=== PATIENT | female | born 1960 | race Caucasian/White ===

== ENCOUNTER 2018-05-03 18:46 | Emergency (ER) | payer BC ==
--- NOTE | 2018-05-03 19:17 | PDOC ---
Rapid Medical Evaluation Medical Evaluation: I have performed a brief in-person evaluation of this patient. The patient presents with a chief complaint of: 57 y/o with no sig pmh tripped over uneven pavement around 30 minutes ago, falling face forward. +LOC around 1.5 minutes. Denies taking any blood thinners. Pertinent physical exam findings: Abrasions to forehead and nose; no active bleeding, no lacerations; also with slight pain on flexion R thumb; no snuffbox TTP, FROM of R wrist; neck supple with FROM, no C spine TTP I have ordered the following: CT head/face, R hand/wrist x-ray, Tylenol The patient will proceed to the ED for further evaluation. 05/03/18 19:12
[2018-05-03] MEDS ORDERED: ACETAMINOPHEN 325 MG TABLET (FP) PO ONE (19:18)
[2018-05-03 19:21] VITALS: BP 142/70; PULSE 91; TEMP 97.4; BMI 31.9
[2018-05-03] MEDS ORDERED: ACETAMINOPHEN 325 MG TABLET (FP) ONE (20:01)
--- NOTE | 2018-05-03 22:30 | PDOC ---
Attending Attestation - HPI HPI: 05/03/18 23:00 The patient is a 57 year old female, with a significant past medical history of a right eye congenital cataract, who presents to the emergency department for evaluation status post mechanical fall just prior to presentation. The patient reports that it was dark and rainy outside as she was trying to get into her car. She slipped on the curb and down onto her right hand/wrist and hit the left side of her face on the ground. Her family, who are at the bedside, did report that she lost consciousness. They subsequently brought her to the emergency department for evaluation. Currently in the emergency department, the patient reports a mild headache in addition to right hand/wrist pain but denies any blurry vision, vision changes, nausea or vomiting. Allergies: None reported. Past Surgical History: None reported. Social History: Non-smoker. Denies alcohol or drug use. Documentation prepared by Aniyah Navarro, acting as electromedical service engineer for Lyly Modi MD. <Aniyah Finn - Last Filed: 05/03/18 23:00> - Resident Resident Name: Fred Eaton - ED Attending Attestation I have performed the following: I have examined & evaluated the patient, The case was reviewed & discussed with the resident, I agree w/resident's findings & plan, Exceptions are as noted - Physicial Exam PE: GENERAL: Awake, alert, and fully oriented, in no acute distress HEAD: +Abrasions and soft tissue swelling to L forehead and L cheek. No bony tenderness. EYES: R pupil +anisocoria (chronic per patient, prior surgery). L pupil round and reactive to light with EOMI, sclera anicteric, conjunctiva clear ENT: Auricles normal inspection, hearing grossly normal, nares patent, oropharynx clear without exudates. Moist mucosa NECK: Normal ROM, supple, no lymphadenopathy, JVD, or masses LUNGS: Breath sounds equal, clear to auscultation bilaterally. No wheezes, and no crackles HEART: Regular rate and rhythm, normal S1 and S2, no murmurs, rubs or gallops ABDOMEN: Soft, nontender, normoactive bowel sounds. No guarding, no rebound. No masses EXTREMITIES: Normal range of motion, no edema. No clubbing or cyanosis. No cords, erythema, or tenderness NEUROLOGICAL: Cranial nerves II through XII grossly intact. Normal speech, normal gait. Motor and sensation intact. SKIN: Warm, Dry, normal turgor. - Medical Decision Making CTH with questionable increased ICP, however, her clinical exam is not indicative of that. She is neurologically intact. D/w NSx, DC home. <Lyly Modi - Last Filed: 05/03/18 23:52>
--- NOTE | 2018-05-03 22:43 | PDOC ---
History of Present Illness - General Chief Complaint: Pain Stated Complaint: FALL Time Seen by Provider: 05/03/18 21:49 History Source: Patient, Family Exam Limitations: No Limitations - History of Present Illness Initial Comments: 05/03/18 22:46 Pt. states that while leaving the bank she slipped on the sidewalk and fell on her hands and face. Pt. denies any prodromal symptoms prior to the fall. Pt. was ableto partially brace the fall with her right hand but the majority of the impact was to the left side of her face. Per daughter and , the patient lost consciousness twice around the same time as she was being sit up started to fade out of consciousness and then again immediately after. The total time was about 2 minutes. EMS was called immediately and Pt. was brought to the ED. Pt. denies any nausea, vomiting, light headedness, dizziness, changes in vision , palpitations, numbness/tingling or lethargy at this time. Pt. endorses headache and was give Tylenol 650mg x 2 to good effect. Pt. endorses nose bleed that has resolved. Pt. endorses right wrist pain. 05/03/18 22:53 Timing/Duration: 4-6 hours Severity: moderate Associated Symptoms: reports: headaches Past History - Past Medical History Allergies/Adverse Reactions: Allergies Allergy/AdvReac Type Severity Reaction Status Date / Time No Known Allergies Allergy Verified 05/03/18 19:18 COPD: No Other medical history: Eczema - Surgical History Cholecystectomy: Yes - Suicide/Smoking/Psychosocial Hx Smoking History: Current every day smoker Number of Cigarettes Smoked Daily: 10 Information on smoking cessation initiated: No Hx Alcohol Use: No Drug/Substance Use Hx: No Review of Systems - Review of Systems HEENTM: Yes: Cataracts, Nose Bleeding. No: Blurred Vision, Double Vision Respiratory: No: Shortness of Breath, Wheezing, Productive cough Cardiac (ROS): No: Lightheadedness, Palpitations : Yes: Flank Pain. No: Burning, Dysuria Musculoskeletal: No: Joint Pain, Muscle Weakness Integumentary: Yes: Bruising, Erythema Neurological: Yes: Headache, Pre-Existing Deficit (congenital right eye cataract ). No: Numbness, Paresthesia, Tingling, Weakness, Ataxia, Dizziness *Physical Exam - Vital Signs Last Vital Signs Temp Pulse Resp BP Pulse Ox 97.4 F L 91 H 18 142/70 98 05/03/18 19:18 05/03/18 19:18 05/03/18 19:18 05/03/18 19:18 05/03/18 19:18 - Physical Exam HEENT: positive: EOMI, RADHA (congenital right eye cataract ), Normal Voice, Pharynx Normal, Sinus Tenderness (area of impact ), Orbits (tenderness around the eye) Neck: positive: Normal Thyroid, Supple Extremity: positive: Normal Capillary Refill, Normal Range of Motion, Erythema ( on right hand ) Neurologic: positive: german teacher II-XII NML intact, Fully Oriented, Alert, Normal Mood/ Affect, Normal Response, Motor Strength 5/5 Moderate Sedation - Procedure Monitoring Vital Signs: Procedure Monitoring Vital Signs Temperature 97.4 F L 05/03/18 19:18 Pulse Rate 91 H 05/03/18 19:18 Respiratory Rate 18 05/03/18 19:18 Blood Pressure 142/70 05/03/18 19:18 O2 Sat by Pulse Oximetry (%) 98 05/03/18 19:18 ED Treatment Course - Medications Given in the ED: ED Medications Discontinued Medications Generic Name Dose Route Start Last Admin Trade Name Freq PRN Reason Stop Dose Admin Acetaminophen 650 mg 05/03/18 19:18 05/03/18 20:04 Tylenol - PO 05/03/18 19:19 650 mg ONCE ONE Administration *DC/Admit/Observation/Transfer Diagnosis at time of Disposition: Fall Qualifiers: Encounter type: initial encounter Qualified Code(s): W19.XXXA - Unspecified fall, initial encounter - Discharge Dispostion Disposition: HOME Condition at time of disposition: Stable - Referrals Referrals: Bony Chester MD, [facility] [Staff Physician] - 05/16/18 - Patient Instructions Printed Discharge Instructions: DI for Dizziness-Nonvertigo, DI for Stroke- Intracerebral Hemorrhage Additional Instructions: You came in after a mechanical fall. You had x-rays of your hand and wrist which did not show any fractures. You had a Head CT which showed no immediate problems. We did see that the folds of your brain were smaller than usual, therefore we would like for you to follow up with a neurosurgeon, Dr. Bony Chester, on May 16, 2018. Please return to the ED if you are experiencing headaches tt are worsening or not getting better, nausea or vomiting, numbness/tingling in your hands, dizziness lightheadedness, worsening pain in your hand, changes in your vision or any other concerning symptoms. - Post Discharge Activity
== END 2018-05-03 23:42 | disposition home or self-care (01) ==
LOC: JER 18:46
DX: S09.93XA Unspecified injury of face, initial encounter (principal); W01.0XXA Fall on same level from slipping, tripping and stumbling without subsequent striking against object, initial encounter; Y93.89 Activity, other specified; Y92.480 Sidewalk as the place of occurrence of the external cause; Y99.8 Other external cause status
CPT/HCPCS: 70450-TC; 70486-TC; 73110-TC-RT-FY; 73130-TC-RT-FY; 99283-25

== ENCOUNTER 2021-12-24 18:10 | Emergency (ER) | payer OTHER ==
[2021-12-24 18:35] VITALS: BP 178/79; PULSE 91; RESP 16; TEMP 98.1; BMI 35.7
[2021-12-24] MEDS ORDERED: ACETAMINOPHEN 325 MG TABLET (FP) PO ONE (20:29)
[2021-12-24] MEDS ORDERED: KETOROLAC TROMETHAMINE 30 MG/1 ML VIAL IM ONE (20:29)
[2021-12-24 20:48] LABS: HEMATOCRIT 39.7 % (32.4-45.2); HEMOGLOBIN 13.2 GM/dL (10.7-15.3); MCH 30.8 pg (25.7-33.7); MCHC 33.3 g/dl (32.0-36.0); MEAN CELL VOLUME 92.6 fl (80-96); MEAN PLT VOLUME 7.8 fl (7.5-11.1); PLATELET COUNT 265 10^3/uL (134-434); RBC 4.29 M/mm3 (3.60-5.2); RDW 13.6 % (11.6-15.6); WHITE BLOOD COUNT 10.1 K/mm3 (4.0-10.0)
[2021-12-24 21:05] LABS: CALCIUM 8.8 mg/dL (8.5-10.1)
[2021-12-24 21:06] LABS: ALBUMIN 3.6 g/dl (3.4-5.0); BLOOD UREA NITROGEN 11.4 mg/dL (7-18)
[2021-12-24 21:09] LABS: CREATININE 0.9 mg/dL (0.55-1.3)
[2021-12-24 21:10] LABS: BILIRUBIN,TOTAL 0.2 mg/dL (0.2-1); TOT PROT 7.7 g/dl (6.4-8.2)
[2021-12-24] MEDS ORDERED: ACETAMINOPHEN 325 MG TABLET (FP) ONE (21:15)
[2021-12-24] MEDS ORDERED: KETOROLAC TROMETHAMINE 30 MG/1 ML VIAL ONE (21:15)
[2021-12-24 22:01] LABS: ANISOCYTOSIS 1+; MACROCYTOSIS 0
[2021-12-24 22:05] LABS: PLATELET ESTIMATE ADEQUATE
== END 2021-12-24 22:26 | disposition home or self-care (01) ==
LOC: JER 18:10
PROC: 3E0233Z Introduction of Anti-inflammatory into Muscle, Percutaneous Approach (ICD-10-PCS; principal; 2021-12-24)
DX: L03.116 Cellulitis of left lower limb (principal)
CPT/HCPCS: 36415; 76882-TC-RT-FY; 80053; 85025; 93971-TC; 99285-25

== ENCOUNTER 2024-02-09 11:48 | Emergency (ER) | payer OTHER ==
[2024-02-09 11:52] VITALS: BP 168/78; PULSE 115; RESP 18; TEMP 98.2; BMI 34.9
[2024-02-09] MEDS ORDERED: METHOCARBAMOL 500 MG TABLET ONE ×2 (12:29→13:23)
[2024-02-09] MEDS ORDERED: KETOROLAC TROMETHAMINE 15 MG/ML VIAL ONE (12:29)
[2024-02-09] MEDS ORDERED: LIDOCAINE 4% PATCH TP ONE (12:29)
[2024-02-09 12:52] LABS: EPI CELLS 9 /uL (0-25.1); HYALINE CASTS 6 /uL (0-3.1); PH,URINE 5.5 (5.0-8.0); URINE APPEARANCE CLEAR; URINE BACTERIA 112 /uL (0-1359); URINE BILIRUBIN NEGATIVE (NEGATIVE); URINE COLOR YELLOW; URINE GLUCOSE (UA) NEGATIVE (NEGATIVE); URINE KETONE TRACE (NEGATIVE); URINE LEUK ESTERASE 3+ (NEGATIVE); URINE NITRITE NEGATIVE (NEGATIVE); URINE PROTEIN TRACE (NEGATIVE); URINE RBC 25 /uL (0-23.9); URINE WBC 878 /uL (0-25.8)
[2024-02-09] MEDS: KETOROLAC TROMETHAMINE 30 MG/1 ML VIAL IM ONE (13:05)
[2024-02-09] MEDS: LIDOCAINE 4% PATCH TP ONE (13:06)
[2024-02-09] MEDS: METHOCARBAMOL 500 MG TABLET PO ONE ×2 (13:08→13:25)
[2024-02-09 14:47] LABS: BASO % 0.7 % (0-2.0); EOS % 3.2 % (0-4.5); HEMATOCRIT 38.7 % (32.4-45.2); HEMOGLOBIN 12.5 GM/dL (10.7-15.3); LYMPH % 27.7 % (8-40); MCH 30.2 pg (25.7-33.7); MCHC 32.4 g/dl (32.0-36.0); MEAN CELL VOLUME 93.4 fl (80-96); MEAN PLT VOLUME 7.8 fl (7.5-11.1); MONO % 9.2 % (3.8-10.2); NEUT % 59.2 % (42.8-82.8); PLATELET COUNT 299 10^3/uL (134-434); RBC 4.15 M/mm3 (3.60-5.2); RDW 14.3 % (11.6-15.6); WHITE BLOOD COUNT 8.9 K/mm3 (4.0-10.0)
[2024-02-09] MEDS ORDERED: diazePAM 2 MG TABLET ONE (14:47)
[2024-02-09] MEDS: diazePAM 2 MG TABLET PO ONE (14:52)
[2024-02-09 15:10] LABS: POTASSIUM 4.5 mmol/L (3.5-5.1)
[2024-02-09 15:12] LABS: ALBUMIN 3.6 g/dl (3.4-5.0); BLOOD UREA NITROGEN 10.7 mg/dL (7-18); CALCIUM 9.3 mg/dL (8.5-10.1)
[2024-02-09 15:17] LABS: BILIRUBIN,TOTAL 0.3 mg/dL (0.2-1); TOT PROT 7.5 g/dl (6.4-8.2)
[2024-02-09 16:00] LABS: HIV INTERPRETATION NEGATIVE (NEGATIVE)
[2024-02-09] MEDS ORDERED: LIDOCAINE PATCH REMOVAL MC SCH (22:00)
== END 2024-02-09 16:35 | disposition home or self-care (01) ==
LOC: JER 11:48
PROC: 3E0233Z Introduction of Anti-inflammatory into Muscle, Percutaneous Approach (ICD-10-PCS; principal; 2024-02-09)
DX: M54.50 Low back pain, unspecified (principal); R10.30 Lower abdominal pain, unspecified
CPT/HCPCS: 36415; 72100-TC-FY; 80053; 81003; 85025; 86803; 87086; 87186; 87389; 96372; 99284-25